=== PATIENT | male | born 1985 | race Hispanic/Latino ===

== ENCOUNTER 2018-11-28 19:19 | Emergency (ER) | payer SELFPAY ==
[2018-11-28] MEDS ORDERED: Lidocaine 1% (PF) 30 ML VIAL ONE (20:20)
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
[2018-11-28] MEDS ORDERED: Bupivacaine 0.5% 10 ML VIAL ONE (20:33)
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
== END 2018-11-28 21:24 | disposition home or self-care (01) ==
LOC: ERS 19:19
DX: S62.635A Displaced fracture of distal phalanx of left ring finger, initial encounter for closed fracture (principal); Y04.0XXA Assault by unarmed brawl or fight, initial encounter
CPT/HCPCS: 26770; J2001; J3490